=== PATIENT | female | born 1980 | race Caucasian/White ===

== ENCOUNTER → 2016-11-20 | Outpatient (CLI) | payer BC ==
[2016-11-20 11:06] VITALS: BP 123/82
== END ==
LOC: MHUC 10:01
PROVIDERS: ATTEND Physician Assistant
DX: S91.331A Puncture wound without foreign body, right foot, initial encounter (principal); W22.8XXA Striking against or struck by other objects, initial encounter; Z23 Encounter for immunization
CPT/HCPCS: 90471; 90715; 99212

== ENCOUNTER → 2017-02-08 | Outpatient (CLI) | payer BC ==
[2017-02-08 14:23] VITALS: BP 118/78
--- NOTE | 2017-02-08 14:23 | Urgent Care T Sheet Gen (E) ---
Intake General Temperature (Fahrenheit): 99.0 Pulse: 69 Blood Pressure Systolic: 118 Blood Pressure Diastolic: 78 Respirations: 18 SPO2: 98 Description of Symptoms Patient presents with 3 cuts to the hands. She was washing dishes when a plate broke and cut her L 3rd-4th fingers and her R wrist. Came here immediately. No meds. Cleaned the wounds and came here. No numbness or tingling to the area. Moves hand normally. Respiratory Constitutional Symptoms: No syptoms reported EENTM: No symptoms reported Respiratory: No symptoms reported Cardiovascular: No symptoms reported Skin: Other (3 lacerations to hands) All Other Systems Reviewed Remaining Systems: All other systems reviewed with negative findings Physical Exam Physical Exam General Appearance: WD/WN No apparent distress Skin Exam: Other (examination of hands reveals a small laceration to the palmar L 3rd and 4th fingers, over the PIP joints and a small laceration to the palmar R wrist. none of them are bleeding. very superficial.) Extremity Exam: Non-tender Full range of motion (in bilateral hands, wrists and fingers) Neurologic/Psychiatric Exam: No sensory deficits Procedures/Interventions Laceration Repair : Location Modifier: Left (3rd and 4th palmar fingers over PIP joints), Right (volar wrist) Type: Laceration Wound Appearance: Clean/Dry Laceration Explored: Clean, No foreign body removed Skin Prep Used: Hibiclens Progress Hibiclens was used to clean the wounds. patient tolerated. All 3 lacerations are very superficial and slightly bleeding. 1 is located over the PIP joint of the L 3rd finger. 1 is located over the PIP joint of the L 4th finger. The L 4th finger laceration has a skin flap which is easily tacked down. 1 laceration is located over the dorsal R wrist. The wrist laceration is approx 1inch long when the other 2 are approx 0.5inches long. Steri-strip was used to tack down the skin flap over the 4th finger laceration. Bacitracin and bandages were used to cover the other 2. Departure Urgent Care Impression Impression: Primary Impression: Hand laceration Qualified Code: S61.412A - Laceration without foreign body of left hand, initial encounter Additional Impression: Wrist laceration Qualified Code: S61.511A - Laceration without foreign body of right wrist, initial encounter Departure Disposition: 01 HOME OR SELF-CARE Condition: Stable Referrals: ALFA HENRY MD (PCP) Additional Instructions: Wounds are very superficial. Should heal without issue in a few days. Keep covered and clean. Wear gloves while at work May use Neosporin if needed. Steri-strip will fall off in a day or 2 Watch for infection. Return as needed Patient understands DC instructions. All questions were answered. End of report . KAITY POE February 08, 2017 14:23
== END ==
LOC: MHUC 13:59
PROVIDERS: ATTEND Physician Assistant
DX: S61.213A Laceration without foreign body of left middle finger without damage to nail, initial encounter (principal); S61.215A Laceration without foreign body of left ring finger without damage to nail, initial encounter; S61.511A Laceration without foreign body of right wrist, initial encounter; W45.8XXA Other foreign body or object entering through skin, initial encounter; Y93.G1 Activity, food preparation and clean up
CPT/HCPCS: 99213